=== PATIENT | female | born 1970 | race Caucasian/White ===

== ENCOUNTER 2016-12-16 06:23 | Emergency (ER) | payer OTHER ==
[~2016-12-16] VITALS: Ht 152.4 cm; Wt 106.6 kg
--- NOTE | ~2016-12-16 | CT2 ---
[facility] A Service of [facility] RADIOLOGY TEXT RESULTS PATIENT: ZUNILDA PIERSON LOCATION: SED : 72 UNIT #: [id number] AGE: [address]: Vishnu Patrick MD SEX: F ORDER DR: [id number] [address] [address] [id number] E MR#: [id number] Acc #: [id number] NAME: ZUNILDA PIERSON : 1970 SEX: F STUDY DATE/TIME: 12/16/2016 8:33 UNIT: SED ROOM: STUDY DESCRIPTION: CT Abd and Pelv W Cont Attending Physician: Vishnu Patrick M.D. Ordering Physician: Vishnu Patrick M.D. Primary Care Physician: Bradford Christina M.D. MEDICAL IMAGING REPORT This report is preliminary unless electronic signature is present. EXAM Abdomen and pelvis CT with contrast HISTORY Diarrhea for the past one and one-half weeks with upper abdominal and lower abdominal pain radiating bilaterally beginning last night. Elevated white count. TECHNIQUE Axial images were obtained with intravenous contrast. 100 mL of Isovue was used. The CT exam was performed with one or more of the following radiation dose reduction techniques: automatic exposure control, adjustment of mA and/or kV according to patient size, and iterative reconstruction. FINDINGS No upper abdominal solid organ abnormalities are seen. There is no evidence of retroperitoneal adenopathy or ascites. No distended bowel loops are seen. The appendix is normal. There is a unilocular cystic mass in the right side of the pelvis. It most likely represents an ovarian cyst. It has a thick wall. The wall is approximately 5 mm in thickness. Ovarian malignancy is not excluded. In the pelvis there is no evidence of adenopathy, mass or fluid collection. Post hysterectomy change is noted. IMPRESSION 1. No acute or inflammatory changes seen in the abdomen or pelvis. Normal appendix. 2. Unilocular cyst in the right pelvis, likely reflecting the right [facility] A Service [facility] RADIOLOGY TEXT RESULTS PATIENT: ZUNILDA PIERSON LOCATION: SED : 72 UNIT #: [id number] AGE: [address]: Vishnu Patrick MD SEX: F ORDER DR: ovary. It measures 4.5 cm diameter. The wall of the cyst is somewhat thick measuring about 5 mm. An ovarian malignancy is not completely excluded. Consider further evaluation with transvaginal pelvic sonography. Correlate with any previous pelvic imaging studies if available. Dictated by... Mani Martinez M.D. THIS IS AN ELECTRONICALLY VERIFIED REPORT Mani Martinez M.D. at 12/16/2016 4:54 PM MICAF/damien TD: 12/16/2016 10:32 JOB #: [id number] MEDICAL IMAGING REPORT Page 1 of 1
[2016-12-16] MEDS ORDERED: LEVOXYL175 MCG PO (06:34)
[2016-12-16] MEDS ORDERED: LISINOPRIL10 MG PO (06:34)
[2016-12-16] MEDS ORDERED: CLARITIN10 M3 PO (06:35)
[2016-12-16] MEDS ORDERED: OMEPRAZOLE40 M1 PO (06:35)
[2016-12-16 07:47] LABS: URINE SOURCE CLEAN CATCH
[2016-12-16 07:48] LABS: BASOPHIL# 0.2 X10e3 (0-0.3); BASOPHIL% 2.1 % (0-2.5); DIFF IND NO; EOSINOPHIL# 0.2 X10e3 (0-0.7); EOSINOPHIL% 1.5 % (0.0-7.0); HEMATOCRIT 32.4 % (35.0-45.0); HEMOGLOBIN 10.3 gm/dL (12.0-16.0); LYMPHOCYTE# 4.1 X10e3 (1.0-3.5); LYMPHOCYTE% 36.7 % (17.0-45.0); MEAN CELL VOLUME 74.4 FL (83-96); MEAN CORPUSCULAR HEMOGLOBIN 23.6 PG (28-34); MEAN CORPUSCULAR HGB CONC 31.7 g/dL (30-36); MEAN PLATELET VOLUME 7.2 FL (6.5-11.5); MONOCYTE# 0.7 X10e3 (0-1.0); MONOCYTE% 5.8 % (3.0-12.0); NEUTROPHIL# 6.1 X10e3 (1.5-7.1); NEUTROPHIL% 53.9 % (40-75); PLATELET COUNT 480 X10e3 (140-420); RED BLOOD COUNT 4.35 X10e (3.90-5.30); RED CELL DISTRIBUTION WIDTH 20.9 % (11.0-15.5); WHITE BLOOD COUNT 11.2 X10e3 (4.0-10.5)
[2016-12-16 07:49] LABS: URINE APPEARANCE CLEAR; URINE BILIRUBIN NEG (NEG); URINE BLOOD NEG (NEG); URINE COLOR YELLOW; URINE GLUCOSE NEG (NORM); URINE KETONE NEG (NEG); URINE LEUKOCYTE ESTERASE NEG (NEG); URINE NITRATE NEG (NEG); URINE PROTEIN NEG (NEG); URINE UROBILINOGEN 0.2 MG/DL (NORM)
[2016-12-16 07:58] LABS: MICRO INDICATED? NO
[2016-12-16 08:02] LABS: ALBUMIN SERUM 3.7 g/dL (3.5-5.0); BILIRUBIN,TOTAL 0.3 mg/dL (0.2-2.0); BUN/CREATININE RATIO 17.14; CALCIUM SERUM 8.1 mg/dL (8.4-10.2); CREATININE SERUM 0.7 mg/dL (0.6-1.4); GLOM FILT RATE Estimated 104.6 mL/min (>60); POTASSIUM 3.6 mmol/L (3.5-5.1)
== END 2016-12-16 10:42 | disposition home or self-care (01) ==
LOC: SED 06:23
DX: R10.9 Unspecified abdominal pain (principal); D64.9 Anemia, unspecified; R19.7 Diarrhea, unspecified; Z88.0 Allergy status to penicillin; Z88.1 Allergy status to other antibiotic agents; Z88.8 Allergy status to other drugs, medicaments and biological substances
CPT/HCPCS: 36415; 74177; 80053; 81003; 85025; 96360; 96372; 99284; J0500; Q9967

== ENCOUNTER → 2016-12-24 | Outpatient (CLI) | payer OTHER ==
[~2016-12-24] MED LIST: CLARITIN10 M3 PO; LEVOXYL175 MCG PO; LISINOPRIL10 MG PO; OMEPRAZOLE40 M1 PO
--- NOTE | ~2016-12-24 | US98 ---
[facility] A Service of [facility] & [facility] RADIOLOGY TEXT RESULTS PATIENT: ZUNILDA PIERSON LOCATION: [facility] : 72 UNIT #: [id number] AGE: [address]: Bradford Christina MD SEX: F ORDER DR: [id number] [facility] [address] [place], [place] [address] [id number] O MR#: [id number] Acc #: [id number] NAME: ZUNILDA PIERSON : 1970 SEX: F STUDY DATE/TIME: 12/24/2016 11:01 UNIT: [facility] ROOM: STUDY DESCRIPTION: US Pelvic Non-OB Complete Attending Physician: Bradford Christina M.D. Referring Physician: Bradford Christina M.D. Ordering Physician: Bradford Christina M.D. Primary Care Physician: Bradford Christina M.D. MEDICAL IMAGING REPORT This report is preliminary unless electronic signature is present EXAM Transabdominal and transvaginal pelvic ultrasound, 12/24/2016 HISTORY 46-year-old female for right ovarian cystic lesion seen on previous CT. G7, P4. COMPARISON CT abdomen and pelvis with contrast, 12/16/2016. FINDINGS Transabdominal imaging was performed for generalized visualization of pelvic structures while transvaginal imaging was performed for more detailed evaluation of the adnexa. Study is significantly limited secondary to patient body habitus. The right ovary is visualized on the transabdominal but not the transvaginal portion of the examination. The right ovary measures approximately 5.1 x 4.1 x 2.8 cm and contains a simple-appearing cyst measuring 3.4 x 2.7 x 2.1 cm. This right ovarian cyst is best demonstrated on the transverse projection. The right ovary demonstrates normal color and spectral Doppler flow. The left ovary is best demonstrated on the transvaginal portion of the examination. The left ovary measures 2.1 x 1.9 x 2.8 cm and contains a couple of eccentric tiny follicles. The left ovary demonstrates normal color and spectral Doppler flow. Uterus is moderately distended with fluid. Hysterectomy. No pelvic free fluid is identified. [facility] A Service of [facility] & [facility] RADIOLOGY TEXT RESULTS PATIENT: ZUNILDA PIERSON LOCATION: [facility] : 72 UNIT #: [id number] AGE: [address]: Bradford Christina MD SEX: F ORDER DR: IMPRESSION 1. Examination is somewhat degraded by patient body habitus and obscuration by bowel gas. 2. Simple right ovarian cyst measures 3.4 cm, smaller than on the previous CT from approximately 1 week ago where it measured up to 4.5 cm. It is best depicted in the transverse projection on transabdominal imaging. 3. Normal flow is documented to the right ovary. 4. Normal left ovary. 5. Hysterectomy. Dictated by... Kia Quigley M.D. THIS IS AN ELECTRONICALLY VERIFIED REPORT Kia Quigley M.D. at 12/30/2016 8:37 AM Flavio TD: 12/24/2016 16:25 JOB #: [id number] MEDICAL IMAGING REPORT Page 1 of 1 COPY
== END | disposition home or self-care (01) ==
LOC: CWCC 10:48
DX: N83.291 Other ovarian cyst, right side (principal); E66.01 Morbid (severe) obesity due to excess calories; Z68.42 Body mass index [BMI] 45.0-49.9, adult; R14.3 Flatulence; I10 Essential (primary) hypertension; E03.9 Hypothyroidism, unspecified; N92.0 Excessive and frequent menstruation with regular cycle; D50.9 Iron deficiency anemia, unspecified; G43.909 Migraine, unspecified, not intractable, without status migrainosus; Z79.899 Other long term (current) drug therapy; Z79.1 Long term (current) use of non-steroidal anti-inflammatories (NSAID); Z90.710 Acquired absence of both cervix and uterus; Z88.0 Allergy status to penicillin; Z88.8 Allergy status to other drugs, medicaments and biological substances
CPT/HCPCS: 76830; 76856